=== PATIENT | male | born 1995 | race Asian ===

== ENCOUNTER → 2016-09-21 | Outpatient (CLI) | payer OTHER ==
--- NOTE | 2016-10-11 14:27 | Pulmonary Function Report ---
Pulmonary Function Report September 21, 2016 Pulmonary Function Report: Clinical data: The patient is a 20-year-old male with a height of 72 inches and a weight of [address] Mckinney for evaluation of persistent cough and chest tightness. Spirometry pre and post exercise and post bronchodilator were performed. Findings: Pre bronchodilator spirometry is within normal limits. FVC is 110 percent of predicted. FEV1 is 103 percent of predicted. FEF 25-75 is 94 percent of predicted. The patient did complete exercise walking on a treadmill at 4 miles/hour 2 percent incline until fatigue developed. Spirometry was performed post exercise at 5 minutes, 10 minutes, 15 minutes, 20 minutes, and post bronchodilator. There was no evidence of exercise-induced bronchospasm seen. FEV1 dropped 3 percent which is not clinically significant. There was no significant change after inhaled bronchodilator. Impression: No evidence of baseline spirometric abnormalities. The patient did not demonstrate evidence of exercise-induced bronchospasm. Copies To 1: Timothy Mckinney M.D.
--- NOTE | 2016-10-19 10:27 | PULMONARY FUNCTION TEST ---
CLINICAL DATA: A 20-year-old male with height of 72 inches and weight of 160 pounds, referred by Dr. Mckinney for evaluation of persistent cough and chest tightness. Spirometry pre- and post-exercise and postbronchodilator was performed. FINDINGS: Pre-bronchodilator spirometry was within normal limits. FVC was 110% of predicted. FEV1 was 103% of predicted. [id number] was 94% of predicted. The patient completed exercise on a treadmill at 4 miles per hour at 2% incline until dyspnea was achieved. Spirometry was measured at 5 minutes, 10 minutes, 15 minutes, and 20 minutes post exercise and postbronchodilator. There was no significant drop in FEV1 with exercise. The lowest FEV1 was just 3% below baseline. The FEV1 actually increased to 107% of predicted after 20 minutes. There was no major improvement after inhaled bronchodilator. IMPRESSION: Normal baseline spirometry with no evidence of exercise-induced bronchospasm on his exercise stress pulmonary test.
== END | disposition home or self-care (01) ==
LOC: C.RC 12:34
PROVIDERS: ATTEND Obstetrics & Gynecology
DX: R05 Cough (principal)